=== PATIENT | female | born 1985 | race Caucasian/White ===

== ENCOUNTER 2020-02-11 10:32 | Emergency (ER) | payer OTHER, SELFPAY ==
--- NOTE | 2020-02-11 10:51 | ED.GENADULT ---
HPI - General Adult General Chief complaint: General Medical Stated complaint: CONSTIPATION Time Seen by Provider: 02/11/20 10:51 Source: patient Mode of arrival: ambulatory Limitations: no limitations History of Present Illness HPI narrative: Patient states she has been constipated for 10 days Onset (ago): day(s) Quality: aching Pain Consistency: constant Related Data Previous Rx's Medication Instructions Recorded lactulose 20 g PO TID #1200 ml 02/11/20 psyllium seed (sugar) [Metamucil 1 tbsp PO BID #1254 g 02/11/20 (sugar)] Allergies Allergy/AdvReac Type Severity Reaction Status Date / Time No Known Allergies Allergy Verified 02/11/20 11:00 Review of Systems Constitutional: Constitutional: Reports no additional constitutional complaints Eyes: Eyes: Reports no additional eye complaints ENT: Denies dizziness Cardiovascular: Cardiovascular: Reports no additional cardiovascular complaints Respiratory: Respiratory: Reports as per HPI Gastrointestinal: Gastrointestinal: Reports no additional gastrointestinal complaints Genitourinary: Genitourinary: Reports no additional female genitourinary complaints Musculoskeletal: Musculoskeletal: Reports no additional musculoskeletal complaints Integumentary/Breasts: Skin/Breast: Denies rash Neurologic: Reports system reviewed and no additional complaints, except as documented, Denies dizziness and Denies Sensory deficit (Neuro) Psychiatric: Psychiatric: Denies anxiety [facility] Past Medical History Medical History (Updated 02/11/20 @ 10:59 by Julio Stone MD) Asthma Hypothyroid Physical Exam Const: General: healthy appearing Nutritional Appearance: average body habitus Orientation/consciousness: oriented to person and patient oriented x3 Limitations: no limitations HENMT: Head: Yes normal to inspection Ears: external ears normal General nose exam: Normal external nose present Mouth: Normal oral and palatal mucosa present and oropharynx normal Throat: Yes posterior oropharynx normal Eyes: General: appearance normal, both eyes and all related structures Neck: Other: supple Neck: Yes normal visual inspection Chest: Chest palpation & inspection: normal inspection of the chest Resp: Auscultation: clear to auscultation bilaterally Cardio: Jugular venous distension: no JVD Rate: regular rate Rhythm: regular rhythm Heart sounds: S1 normal heart sound present and S2 normal heart sound present GI: Inspection: Yes normal to inspection Palpation (GI): Soft to palpation, nontender and No hepatosplenomegaly present Auscultation: normal bowel sounds : General: Yes no CVA tenderness Back/Spine/Pelvis: Back: no CVA tenderness Skin: General skin exam: no rashes or lesions noted Neuro: General: oriented to person and patient oriented x3 Cranial nerves: Yes CN's II-XII intact bilaterally Motor exam (neuro): 5/5 motor strength present throughout Sensory Exam: No Sensory deficit (Neuro) Extrem: General: Yes normal to inspection Psych: Appearance: grossly normal Course Course Course Narrative: resting comforatably Medical Decision Making [facility] Narrative Medical decision making narrative: soft abdomen does not require a complete work up at this time Discharge Plan Discharge Clinical Impression: Constipation Patient Disposition: Home, Self-Care Instructions: Constipation (ED) Prescriptions: New lactulose 20 gram/30 mL solution 20 g PO TID Qty: 1200 RF: 0 Metamucil (sugar) Powder 1 tbsp PO BID Qty: 1254 RF: 0 Referrals: Physician,Unknown [Primary Care Provider] - 2 days Stand Alone Forms: Work/School Release
[2020-02-11 10:56] VITALS: BP 146/83; PULSE 70; RESP 16; TEMP 37.1; O2SAT 100; BMI 27.4
== END 2020-02-11 11:27 | disposition home or self-care (01) ==
LOC: HO.ED 11:05
PROVIDERS: Emergency Provider Emergency Medicine
DX: K59.00 Constipation, unspecified (principal)
CPT/HCPCS: 99283

== ENCOUNTER 2020-05-21 07:29 | Emergency (ER) | payer OTHER, SELFPAY ==
[2020-05-21 07:32] VITALS: BP 132/70; PULSE 70; RESP 16; TEMP 36.8; O2SAT 100; BMI 27.4
[2020-05-21] MEDS: Acetaminophen 325 MG TABLET 650 MG PO (07:35)
--- NOTE | 2020-05-21 07:50 | ED.DENTAL ---
HPI - Dental/Oral General Chief complaint: Dental/Oral Stated complaint: TOOTHACHE Time Seen by Provider: 05/21/20 07:49 Source: patient Mode of arrival: ambulatory Limitations: no limitations History of Present Illness HPI Narrative: known prior dental trauma c/o worsening pain since last night no response to bryn AGUILAR Complaint: tooth pain Teeth map: 1. 2. Onset (ago): day(s) (1) Duration: constant Severity: severe Relieving factors: nothing Exacerbating factors: nothing Context: trauma (mechanism) Associated symptoms: gum swelling Treatment prior to arrival: oral analgesic Related Data Previous Rx's Medication Instructions Recorded lactulose 20 g PO TID #1200 ml 02/11/20 psyllium seed (sugar) [Metamucil 1 tbsp PO BID #1254 g 02/11/20 (sugar)] amoxicillin 500 mg PO BID 7 Days #14 cap 05/21/20 tramadol 50 mg PO Q8H PRN #8 tab 05/21/20 Allergies Allergy/AdvReac Type Severity Reaction Status Date / Time No Known Allergies Allergy Verified 02/11/20 11:00 Review of Systems Review of Systems: Constitutional : No Fever, No Chills ENT/Mouth : No swallowing difficulty, no change in voice, positive dental pain, positive jaw pain, no facial swelling Eyes: No Eye Pain, No Swelling Cardiovascular : No Chest Pain, No SOB Respiratory : No Cough, No Sputum Gastrointestinal : No Nausea, No Vomiting, No Diarrhea Genitourinary : No Dysuria Musculoskeletal : No Myalgias Skin : No rash Neuro : No Weakness, No Numbness, No Headache PMFSH Past Medical History Attestation statement: The following information was validated with the patient. Medical History Asthma Hypothyroid Social History Social History Alcohol intake: never Smoking Status: Current every day smoker Use of substances other than those prescribed or required for medical reasons: No Advance Directives: Yes Advance Directives Information Provided: No Advance Directives on File: No Physical Exam Vital Signs: Vital Signs: Last Vital Signs Temp 98.2 F 05/21/20 07:32 Pulse 70 05/21/20 07:32 Resp 16 05/21/20 07:32 BP 132/70 05/21/20 07:32 Pulse Ox 100 02/25/21 07:32 Body Mass Index 27.4 Appearance: Alert. Oriented X3. No acute distress. Eyes: Pupils equal, round and reactive to light. ENT: R lower molar - mild gingival induration, no abscess, no trismus site of old cracked tooth, right upper incisor fractured tooth no signs of abscess Neck: Normal inspection. Neck supple. CVS: Normal heart rate and rhythm. Pulses normal. Respiratory: No respiratory distress. Breath sounds normal. Abdomen: Soft and nontender. Skin: Skin warm and dry. Normal skin color. Normal skin turgor. Extremities: No lower extremity edema. No calf ttp Neuro: Oriented X 3. No motor deficit. No sensory deficit. MDM - Dental/Oral MDM Narrative Medical decision making narrative: 35 yo female otherwise healthy here with fractured tooth and toothache at old site of dental trauma - no signs of abscess, mild gingival induration, no concern for deeper space infection - PO amoxicilin, medications, referral to her dentist Discharge Plan Discharge Clinical Impression: Toothache Fracture of tooth Qualifiers: Encounter type: initial encounter Fracture type: closed Qualified Code(s): S02.5XXA - Fracture of tooth (traumatic), initial encounter for closed fracture Patient Disposition: Home, Self-Care Instructions: Acute Dental Trauma (ED), Toothache (ED) Additional Instructions: return to ED for any worsening symptoms or concerns please call your dentist today Prescriptions: New amoxicillin 500 mg capsule 500 mg PO BID 7 Days Qty: 14 RF: 0 tramadol 50 mg tablet 50 mg PO Q8H PRN (Reason: pain) Qty: 8 RF: 0 No Action lactulose 20 gram/30 mL solution 20 g PO TID Qty: 1200 RF: 0 Metamucil (sugar) Powder 1 tbsp PO BID Qty: 1254 RF: 0
[2020-05-21] MEDS: Amoxicillin 500 MG CAPSULE PO (08:34)
[2020-05-21] MEDS: traMADoL HCL 50 MG TABLET PO (08:34)
== END 2020-05-21 08:39 | disposition home or self-care (01) ==
LOC: HO.ED 07:52
PROVIDERS: Emergency Provider Emergency Medicine; PCP Internal Medicine
DX: K08.89 Other specified disorders of teeth and supporting structures (principal); S02.5XXA Fracture of tooth (traumatic), initial encounter for closed fracture; X58.XXXA Exposure to other specified factors, initial encounter; J45.909 Unspecified asthma, uncomplicated; F17.200 Nicotine dependence, unspecified, uncomplicated; Y93.9 Activity, unspecified; Y92.9 Unspecified place or not applicable; Y99.9 Unspecified external cause status
CPT/HCPCS: 99283

== ENCOUNTER 2020-05-28 07:48 | Emergency (ER) | payer OTHER, SELFPAY ==
[2020-05-28 07:52] VITALS: BP 138/88; PULSE 64; RESP 14; TEMP 36.6; O2SAT 96; BMI 28.7
--- NOTE | 2020-05-28 08:01 | PC.NURSE ---
TO BED 6 AFTER EXTERNAL TRIAGE
--- NOTE | 2020-05-28 08:10 | ED.DENTAL ---
HPI - Dental/Oral General Chief complaint: Dental/Oral Stated complaint: tooth ache Time Seen by Provider: 05/28/20 07:58 Source: patient Mode of arrival: ambulatory Limitations: no limitations History of Present Illness HPI Narrative: 35-year-old female presenting to the ED with complaints of right lower molar pain for the past few weeks worse today. Was seen here approximately 1 week ago although has not picked up her tramadol prescription. Patient has not went to fill her tramadol prescription at [facility] we just called and they are holding it for her and able to fill it today with her [facility]. Therefore explained this to the patient she reports that she has a follow-up with the oral surgeon next week. Denies any other symptoms complaints or concerns at this time. MD Complaint: tooth pain Teeth map: 1. 2. Onset (ago): week(s) (A few weeks worse today) Duration: constant Severity: moderate Relieving factors: nothing Exacerbating factors: chewing Context: history of dental caries, poor dental care and other (History of Dental fractures) Treatment prior to arrival: other (She reports she has tried multiple [id number] medications and no symptomatic relief) Related Data Previous Rx's Medication Instructions Recorded lactulose 20 g PO TID #1200 ml 02/11/20 psyllium seed (sugar) [Metamucil 1 tbsp PO BID #1254 g 02/11/20 (sugar)] amoxicillin 500 mg PO BID 7 Days #14 cap 05/21/20 tramadol 50 mg PO Q8H PRN #8 tab 05/21/20 penicillin V potassium 500 mg PO BID 10 Days #20 tab 05/28/20 Allergies Allergy/AdvReac Type Severity Reaction Status Date / Time No Known Allergies Allergy Verified 02/11/20 11:00 Review of Systems Review of Systems: Constitutional : No Fever, No Chills, No changes in PO intake, No difficulty speaking, no recent dental procedure, no heat or cold intolerance while eating, no recent face trauma, ENT/Mouth : + Dental pain, No Sore throt, No Jaw pain, No throat swelling, No swallowing difficulty, no change in voice, No facial swelling, no drooling, no trismus, no bleeding, no lacerations, no tongue swelling, gum swelling, Eyes: No Eye Pain, No periorbital Swelling Cardiovascular : No Chest Pain, No SOB Respiratory : No Cough, No Sputum, No Wheezing, No Smoke Exposure, No Dyspnea Gastrointestinal : No Nausea, No Vomiting, No Diarrhea Genitourinary : No Dysuria Musculoskeletal : No Myalgias Skin : No rash, no facial swelling or redness, Neuro : No Weakness, No Numbness, No Headache Yes all other systems are reviewed and are negative [facility] Past Medical History Attestation statement: The following information was validated with the patient. Medical History Asthma Hypothyroid Social History Social History Alcohol intake: never Smoking Status: Current every day smoker Advance Directives: No Advance Directives Information Provided: No Physical Exam Vital Signs: Vital Signs: Last Vital Signs Temp 97.8 F 05/28/20 07:52 Pulse 64 05/28/20 07:52 Resp 14 05/28/20 07:52 BP 138/88 05/28/20 07:52 Pulse Ox 96 05/28/20 07:52 Body Mass Index 28.7 vital signs have been reviewed as normal and appeared to be correct. Blood pressure normal. Heart rate normal. Respiration rate normal. Temperature normal. Oxygen saturation normal. Appearance: Alert. Oriented X3. No acute distress. Head: Normal external exam. Normocephalic. Atraumatic. Eyes: PERRLA. EOMI. Conjunctiva and sclera normal. Eyelids normal. ENT: EAC normal. TM's Normal. Pharynx normal. Uvula midline. Moist mucous membranes. No trismus noted. No drooling noted. No muffled voice noted. Dentition: Patient with poor dentition throughout with multiple old fractured teeth with multiple dental caries. Gingival within normal limits. No fluctuance. Not consistent with peritonsillar abscess. Not consistent with dental abscess. No salivary duct obstruction noted. Neck: Normal inspection. Neck supple. FROM. No adenopathy. Thyroid Normal. No meningeal signs. No neck mass noted. Trachea midline. CVS: Normal heart rate and rhythm. Heart sound normal. No murmurs noted. Pulses normal throughout. Respiratory: No respiratory distress. Painless inspiration. Breath sounds normal. No wheezes/rales/rhonchi noted. Chest nontender. No accessory muscle usage noted or decreased air movement noted. Back: Full range of motion noted. Skin: Skin warm and dry. Normal skin color. Normal skin turgor. No rashes/lesions/lacerations noted. Extremities:Extremities exhibit normal range of motion. Extremities nontender. Neuro: Oriented X 3. No motor deficit. No sensory deficit. Reflexes normal. Course Course Course Narrative: I explained to the patient that we called [facility] in her tramadol prescription is still waiting for her and they reported that her [facility] insurance is accepted there. I started the patient on penicillin. Explained patient to follow up with her oral surgeon and to return if any new or worsening symptoms. Patient understands agrees with this plan. [facility] - Dental/Oral Medical Records Attestation: I reviewed the patient's medical records. Discharge Plan Discharge Clinical Impression: Toothache, Dental caries Patient Disposition: Home, Self-Care Instructions: Toothache (ED) Prescriptions: New penicillin V potassium 500 mg tablet 500 mg PO BID 10 Days Qty: 20 RF: 0 No Action lactulose 20 gram/30 mL solution 20 g PO TID Qty: 1200 RF: 0 Metamucil (sugar) Powder 1 tbsp PO BID Qty: 1254 RF: 0 amoxicillin 500 mg capsule 500 mg PO BID 7 Days Qty: 14 RF: 0 tramadol 50 mg tablet 50 mg PO Q8H PRN (Reason: pain) Qty: 8 RF: 0 Referrals: Physician,Unknown [Primary Care Provider] - 2 days (your dentist) Stand Alone Forms: Work/School Release Discharge Date/Time: 05/28/20 08:19
--- NOTE | 2020-05-28 08:18 | PC.NURSE ---
SEEN BY PROVIDER. PLAN IS TO DC WITHOUT FURTHER INTERVENTION. CHARGE NURSE CALLED PT [facility] HAS SCRIPT FOR TRAMADOL THERE. NEW SCRIPT FOR ABX SENT.
== END 2020-05-28 08:19 | disposition home or self-care (01) ==
PROVIDERS: Emergency Provider Emergency Medicine
DX: K02.9 Dental caries, unspecified (principal)
CPT/HCPCS: 99282

== ENCOUNTER 2020-06-18 05:47 | Emergency (ER) | payer OTHER, SELFPAY ==
[2020-06-18 06:02] VITALS: BP 129/77; PULSE 72; RESP 16; TEMP 36.9; O2SAT 98; BMI 27.4
--- NOTE | 2020-06-18 06:28 | ED_ITS ---
HPI - Asthma General Chief Complaint: Asthma Stated Complaint: Asthma Treatment Time Seen by Provider: 06/18/20 05:56 Source: patient Mode of arrival: ambulatory History of Present Illness HPI Narrative: This is a 35-year-old female with history of asthma and presents with acute onset exacerbation during an emotional exchange and patient states that when she used her inhaler ?it did not get better?. Otherwise, she denies any fevers, chills, nausea, vomiting. Related Data Previous Rx's Medication Instructions Recorded lactulose 20 g PO TID #1200 ml 02/11/20 psyllium seed (sugar) [Metamucil 1 tbsp PO BID #1254 g 02/11/20 (sugar)] amoxicillin 500 mg PO BID 7 Days #14 cap 05/21/20 tramadol 50 mg PO Q8H PRN #8 tab 05/21/20 penicillin V potassium 500 mg PO Q12H 10 Days #20 tab 05/28/20 tramadol 50 mg PO BID PRN #14 tab 05/28/20 prednisone 40 mg PO DAILY 4 Days #8 tab 06/18/20 Allergies Allergy/AdvReac Type Severity Reaction Status Date / Time No Known Allergies Allergy Verified 02/11/20 11:00 Review of Systems Review of Systems: Pertinent positives and negatives as stated in HPI 10 point review of systems is otherwise negative. PMFSH Past Medical History Source: nursing notes reviewed Medical History Asthma Hypothyroid Social History Social History Alcohol intake: never Smoking Status: Current every day smoker Advance Directives: No Physical Exam Vital Signs: Vital Signs: Last Vital Signs Temp 98.5 F 06/18/20 06:02 Pulse 72 06/18/20 06:02 Resp 16 06/18/20 06:02 BP 129/77 06/18/20 06:02 Pulse Ox 98 06/18/20 06:02 Body Mass Index 27.4 VITAL SIGNS: Reviewed. GENERAL: Well developed, well nourished, in no acute distress. HEAD: Normocephalic/atraumatic, EYES: PERRLA, EOMI intact without pain, no nystagmus/pallor/icterus noted EARS: Ext canals without abnormality, TMs non-bulging and non-erythematous NOSE: Nares patent bilateral OROPHARYNX: no oral lesions noted, posterior pharynx clear NECK: Supple, no adenopathy LUNGS: Minimal expiratory wheeze, no tachypnea SpO2<98> CARDIOVASCULAR: Regular rate and rhythm without noted murmurs ABDOMEN: Soft, non-tender, non-distended with bowel sounds. SKIN: Inspection of the skin reveals no rashes NEUROLOGIC: Alert and oriented x 4. Course Course Course Narrative: This is a 35-year-old female with history and clinical presentation consistent with mild asthma exacerbation likely secondary to emotional state. Will treat albuterol and oral prednisone. Discussed the plan with the patient who is agreeable. Informed by nursing that patient has left the room without receiving Ventolin treatment or prednisone. Discharge Plan Discharge Clinical Impression: Asthma with acute exacerbation Qualifiers: Asthma severity: mild Asthma persistence: unspecified Qualified Code(s): J45.901 - Unspecified asthma with (acute) exacerbation Patient Disposition: Elopement Instructions: Asthma (ED) Additional Instructions: Please continue to use your home inhaler as prescribed. Follow-up with your primary care provider in the next 1-2 days for re- evaluation. Do not hesitate to return to the emergency department for any acute worsening of your symptoms. Prescriptions: New prednisone 20 mg tablet 40 mg PO DAILY 4 Days Qty: 8 RF: 0 No Action penicillin V potassium 500 mg tablet 500 mg PO Q12H 10 Days Qty: 20 RF: 0 tramadol 50 mg tablet 50 mg PO BID PRN (Reason: pain) Qty: 14 RF: 0 lactulose 20 gram/30 mL solution 20 g PO TID Qty: 1200 RF: 0 Metamucil (sugar) Powder 1 tbsp PO BID Qty: 1254 RF: 0 amoxicillin 500 mg capsule 500 mg PO BID 7 Days Qty: 14 RF: 0 tramadol 50 mg tablet 50 mg PO Q8H PRN (Reason: pain) Qty: 8 RF: 0 Referrals: Physician,None [Primary Care Provider] - 2 days
--- NOTE | 2020-06-18 06:33 | PC.NURSE ---
pt was triaged, seen by the doctor, resp called to give a treatment and present to give and pt was not present in the room. pt was crying earlier and was on her phone then left after being seen by the doctor. pt not in her room at 0625
== END 2020-06-18 06:25 | disposition left against medical advice (07) ==
PROVIDERS: Emergency Provider Student in an Organized Health Care Education/Training Program
DX: J45.901 Unspecified asthma with (acute) exacerbation (principal)
CPT/HCPCS: 99282; 99284

== ENCOUNTER 2021-01-20 00:30 | Emergency (ER) | payer OTHER, SELFPAY ==
[2021-01-20 00:51] VITALS: BP 125/85; PULSE 86; RESP 16; TEMP 36.6; O2SAT 95; BMI 27.1
--- NOTE | 2021-01-20 01:02 | PC.NURSE ---
PATIENT ASKING FOR REGISTRATION TO MAKE HER NAME CONFIDENTIAL IN THE COMPUTER SO NO ONE CAN KNOW I AM HERE PATIENT PLACED THE WAITING ROOM AND THEN WALKING OUT OF THE WAITING ROOM ONCE SHE WAS CALLED FOR A BED ASSIGNMENT. STATING SHE NEEDS TO GET SOME AIR AND GO FOR A WALK. PATIENT HAS NOT RETURN TO THE DEPARTMENT AFTER WALKING OUTSIDE.
--- NOTE | 2021-01-20 01:24 | PC.NURSE ---
PATIENT HAS NOT RETURNED TO THE DEPARTMENT PATIENT HAS LEFT WITHOUT TREATMENT.
== END 2021-01-20 01:05 | disposition left against medical advice (07) ==
PROVIDERS: Emergency Provider Emergency Medicine
DX: G43.909 Migraine, unspecified, not intractable, without status migrainosus (principal)
CPT/HCPCS: 99281; 99282